=== PATIENT | female | born 1975 | race African-American/Black ===

== ENCOUNTER 2018-05-07 10:54 | Emergency (ER) | payer MEDICAID, OTHER ==
[~2018-05-07] VITALS: Ht 180.3 cm; Wt 97.1 kg
[2018-05-07 11:03] VITALS: BP 131/62
[2018-05-07] MEDS ORDERED: LIDOCAINE 1% HCL (LOCAL ANESTH.) INJ 20ML MDV IJ ONE (13:30)
== END 2018-05-07 15:17 | disposition home or self-care (01) ==
LOC: ER 10:57
DX: K64.5 Perianal venous thrombosis (principal); Z88.0 Allergy status to penicillin; Z90.710 Acquired absence of both cervix and uterus
CPT/HCPCS: 46083

== ENCOUNTER 2019-12-31 11:46 | Inpatient (IN) | payer MEDICAID ==
[~2019-12-31] VITALS: Ht 180.3 cm; Wt 111.1 kg
[2019-12-31] MEDS ORDERED: SODIUM CHLORIDE 0.9% 1,000 ML IVB ONE (12:45)
[2019-12-31] MEDS ORDERED: MORPHINE SULFATE 4 MG/ML SYR/VIAL IV ONE (12:45)
[2019-12-31] MEDS ORDERED: KETOROLAC TROMETH 30 MG/ML 1ML VIAL IV ONE (12:45)
[2019-12-31] MEDS ORDERED: ONDANSETRON HCL 4 MG/2 ML VIAL IV ONE (12:45)
[2019-12-31 13:13] LABS: Urine Bacteria NONE SEEN /hpf (None Seen); Urine Blood 2+ /uL (Negative); Urine Mucus FEW (None Seen); Urine Specific Gravity 1.018 (1.001-1.035); Urine WBC 1 /hpf (0 - 5)
[2019-12-31 13:17] LABS: Basophils # (auto) 0 10 ^3/uL (0-0.2); Basophils % (auto) 0.8 % (0.0-2.0); Eosinophils # (auto) 0.1 10 ^3/uL (0-0.8); Eosinophils % (auto) 3.3 % (0.0-7.0); Hematocrit 37.6 % (36.0-46.0); Hemoglobin 12.8 g/dL (12.2-16.2); Lymphocytes # (auto) 1.6 10 ^3/uL (0.4-5.4); Lymphocytes % (auto) 41.2 % (10.0-50.0); Mean Corpuscular Hemoglobin 29.1 pg (28.0-32.0); Mean Corpuscular Hgb Conc. 33.9 g/dL (32.0-36.0); Monocytes # (auto) 0.4 10 ^3/uL (0-1.3); Monocytes % (auto) 9.2 % (0.0-12.0); Neutrophils # (auto) 1.8 10 ^3/uL (1.6-8.6); Neutrophils % (auto) 45.5 % (37.0-80.0); Platelet Count (auto) 188 10^3/uL (140-450); Red Blood Cells 4.38 10^6/uL (4.0-5.20); Red Cell Distribution Width 13.1 % (11.8-14.3)
[2019-12-31 13:39] LABS: Albumin 3.6 g/dL (3.4-5.0); Calcium 8.9 mg/dL (8.5-10.1); Potassium 4.3 mmol/L (3.5-5.1)
[2019-12-31 13:42] LABS: BUN/Creatinine Ratio 15.2; Bilirubin, Total 0.5 mg/dL (0.2-1.0)
[2019-12-31] MEDS ORDERED: ONDANSETRON HCL 4 MG/2 ML VIAL IV PRN (16:15)
[2019-12-31] MEDS ORDERED: ACETAMINOPHEN 325 MG TAB PO PRN (16:15)
[2019-12-31] MEDS ORDERED: HYDROcodone-ACET 5/325MG TAB PO PRN (16:15)
[2019-12-31] MEDS: SODIUM CHLORIDE 0.9% 1,000 ML IV SCH ×2 (16:39→20:35)
[2019-12-31] MEDS: TAMSULOSIN HYDROCHLORIDE 0.4 MG CAP PO SCH (18:36)
[2019-12-31] MEDS: MORPHINE SULF INJ 2 MG/ML SYRINGE 1ML IV PRN (19:56)
[2019-12-31 20:30] VITALS: BP 116/93
[2019-12-31 22:00] VITALS: BP 116/93
[2020-01-01] MEDS: diphenhdrAMINE HCL 50 MG/1 ML VL IV PRN ×4 (00:36→22:00)
[2020-01-01] MEDS: SODIUM CHLORIDE 0.9% 1,000 ML IV SCH ×4 (04:46→21:35)
[2020-01-01 05:00] VITALS: BP 111/67
[2020-01-01] MEDS: MORPHINE SULF INJ 2 MG/ML SYRINGE 1ML IV PRN ×4 (05:09→19:00)
[2020-01-01 06:21] LABS: Basophils # (auto) 0 10 ^3/uL (0-0.2); Basophils % (auto) 0.6 % (0.0-2.0); Eosinophils # (auto) 0.1 10 ^3/uL (0-0.8); Eosinophils % (auto) 3.2 % (0.0-7.0); Hematocrit 33.1 % (36.0-46.0); Hemoglobin 11.5 g/dL (12.2-16.2); Lymphocytes # (auto) 1.2 10 ^3/uL (0.4-5.4); Lymphocytes % (auto) 32.1 % (10.0-50.0); Mean Corpuscular Hemoglobin 29.8 pg (28.0-32.0); Mean Corpuscular Hgb Conc. 34.7 g/dL (32.0-36.0); Mean Corpuscular Volume 85.9 fL (80.0-100.0); Monocytes # (auto) 0.3 10 ^3/uL (0-1.3); Monocytes % (auto) 9.3 % (0.0-12.0); Neutrophils % (auto) 54.8 % (37.0-80.0); Nucleated Red Blood Cells % 0.2 %; Platelet Count (auto) 158 10^3/uL (140-450); Red Blood Cells 3.85 10^6/uL (4.0-5.20); Red Cell Distribution Width 13.4 % (11.8-14.3); White Blood Cell 3.7 10^3/uL (4.4-10.8)
[2020-01-01 06:33] LABS: Calcium 8.2 mg/dL (8.5-10.1); Magnesium 2.1 mg/dL (1.6-2.6); Potassium 3.8 mmol/L (3.5-5.1)
[2020-01-01 06:36] LABS: BUN/Creatinine Ratio 15.8
[2020-01-01 09:00] VITALS: BP 108/63
[2020-01-01] MEDS ORDERED: cefTRIAXone 1GM/50ML D5W 50 ML IV SCH (09:00)
[2020-01-01] MEDS: cefTRIAXone 1GM/50ML D5W 50 ML IV SCH (09:00)
[2020-01-01 13:00] VITALS: BP 121/75
[2020-01-01 16:16] VITALS: BP 147/90
[2020-01-01] MEDS: TAMSULOSIN HYDROCHLORIDE 0.4 MG CAP PO SCH (18:52)
[2020-01-01 22:00] VITALS: BP 112/68
[2020-01-02] MEDS: SODIUM CHLORIDE 0.9% 1,000 ML IV SCH ×3 (01:04→18:42)
[2020-01-02] MEDS: MORPHINE SULF INJ 2 MG/ML SYRINGE 1ML IV PRN ×3 (01:04→10:44)
[2020-01-02 05:00] VITALS: BP 118/70
[2020-01-02] MEDS: cefTRIAXone 1GM/50ML D5W 50 ML IV SCH (08:16)
[2020-01-02] MEDS: diphenhdrAMINE HCL 50 MG/1 ML VL IV PRN ×3 (08:16→19:32)
[2020-01-02 09:00] VITALS: BP 130/85
[2020-01-02] MEDS ORDERED: MANNITOL FTV 25% 12.5 GM/50 ML 50 ML IV ONE (09:15)
[2020-01-02] MEDS ORDERED: SODIUM CHLORIDE 0.9% 1,000 ML IV ONE (09:15)
[2020-01-02 13:00] VITALS: BP 126/76
[2020-01-02 17:00] VITALS: BP_SYST 127; BP_SYST 144; BP_DIAS 65; BP_DIAS 78
[2020-01-02] MEDS: HYDROmorphone HCL 2 MG/ML VL IV PRN ×2 (18:42→22:34)
[2020-01-02] MEDS: TAMSULOSIN HYDROCHLORIDE 0.4 MG CAP PO SCH (18:42)
[2020-01-02 22:00] VITALS: BP 119/72
[2020-01-03] MEDS: diphenhdrAMINE HCL 50 MG/1 ML VL IV PRN ×3 (01:16→20:19)
[2020-01-03] MEDS: SODIUM CHLORIDE 0.9% 1,000 ML IV SCH ×3 (04:15→18:00)
[2020-01-03 05:00] VITALS: BP 137/79
[2020-01-03 06:59] LABS: Calcium 8.5 mg/dL (8.5-10.1)
[2020-01-03 07:02] LABS: BUN/Creatinine Ratio 8.7; Basophils # (auto) 0 10 ^3/uL (0-0.2); Basophils % (auto) 0.6 % (0.0-2.0); Eosinophils # (auto) 0.1 10 ^3/uL (0-0.8); Eosinophils % (auto) 1.3 % (0.0-7.0); Hematocrit 35.9 % (36.0-46.0); Hemoglobin 12.4 g/dL (12.2-16.2); Lymphocytes # (auto) 1.2 10 ^3/uL (0.4-5.4); Mean Corpuscular Hemoglobin 29.5 pg (28.0-32.0); Mean Corpuscular Hgb Conc. 34.7 g/dL (32.0-36.0); Mean Corpuscular Volume 85.2 fL (80.0-100.0); Monocytes # (auto) 0.3 10 ^3/uL (0-1.3); Monocytes % (auto) 6.8 % (0.0-12.0); Neutrophils % (auto) 65.3 % (37.0-80.0); Nucleated Red Blood Cells % 0.1 %; Platelet Count (auto) 190 10^3/uL (140-450); Red Blood Cells 4.22 10^6/uL (4.0-5.20); Red Cell Distribution Width 13.1 % (11.8-14.3); White Blood Cell 4.5 10^3/uL (4.4-10.8)
[2020-01-03 07:03] LABS: INR 0.97 (0.9-1.15); Partial Thromboplastin Time 24.3 sec (23.0-31.2)
[2020-01-03] MEDS ORDERED: IOHEXOL 300 MG/ML 100ML BOTTLE IJ ONE (07:41)
[2020-01-03] MEDS ORDERED: CIPROFLOXACIN 400MG/200ML 200 ML IV ONE (08:08)
[2020-01-03] MEDS ORDERED: SUCCINYLCHOLINE CHLORIDE 20 MG/ML 10ML VIAL IV ONE (08:09)
[2020-01-03] MEDS ORDERED: LIDOCAINE 1% (LOCAL ANESTH.) PF 5ml SDV ONE (08:09)
[2020-01-03] MEDS ORDERED: MIDAZOLAM HCL 1MG/1ML-2 ML VIAL ONE (08:11)
[2020-01-03] MEDS ORDERED: METOCLOPRAMIDE HCL 5MG/ml INJ 2ml VIAL ONE (08:13)
[2020-01-03] MEDS ORDERED: ONDANSETRON HCL 4 MG/2 ML VIAL IV PRN (08:15)
[2020-01-03] MEDS ORDERED: PROPOFOL 10 MG/ML 20 ML IV ONE (08:15)
[2020-01-03] MEDS ORDERED: ROCURONIUM 10MG/ML 10ML VIAL IV ONE (08:15)
[2020-01-03] MEDS ORDERED: NALOXONE HCL 0.4 MG/ML VIAL IV PRN (08:15)
[2020-01-03] MEDS ORDERED: HYDROmorphone HCL 2 MG/ML VL IV PRN ×2 (08:15)
[2020-01-03] MEDS ORDERED: fentaNYL CITRATE 100 MCG/2 ML VL ONE (08:23)
[2020-01-03] MEDS ORDERED: NEOSTIGMINE 1 MG/ML INJ (10mg/10ML VIAL) ONE (08:59)
[2020-01-03] MEDS ORDERED: GLYCOPYRROLATE 0.2 MG/ML 1ML VIAL ONE (08:59)
[2020-01-03] MEDS: cefTRIAXone 1GM/50ML D5W 50 ML IV SCH (09:00)
[2020-01-03] MEDS ORDERED: KETOROLAC TROMETH 30 MG/ML 1ML VIAL ONE (09:03)
[2020-01-03 13:00] VITALS: BP 107/74
[2020-01-03] MEDS: HYDROmorphone HCL 2 MG/ML VL IV PRN ×3 (13:56→22:20)
[2020-01-03 17:00] VITALS: BP 112/67
[2020-01-03] MEDS: TAMSULOSIN HYDROCHLORIDE 0.4 MG CAP PO SCH (18:21)
[2020-01-03 22:00] VITALS: BP 106/72
[2020-01-04] MEDS: SODIUM CHLORIDE 0.9% 1,000 ML IV SCH ×3 (00:15→17:49)
[2020-01-04] MEDS: diphenhdrAMINE HCL 50 MG/1 ML VL IV PRN ×3 (02:24→17:48)
[2020-01-04] MEDS: HYDROmorphone HCL 2 MG/ML VL IV PRN ×4 (03:43→19:05)
[2020-01-04 05:00] VITALS: BP 110/60
[2020-01-04 08:39] VITALS: BP 120/70
[2020-01-04] MEDS: cefTRIAXone 1GM/50ML D5W 50 ML IV SCH (08:50)
[2020-01-04 13:00] VITALS: BP 120/74
[2020-01-04 16:42] VITALS: BP 145/95
[2020-01-04] MEDS: TAMSULOSIN HYDROCHLORIDE 0.4 MG CAP PO SCH (17:48)
[2020-01-04 22:00] VITALS: BP 135/81
[2020-01-05] MEDS: HYDROmorphone HCL 2 MG/ML VL IV PRN ×2 (02:02→09:32)
[2020-01-05] MEDS: diphenhdrAMINE HCL 50 MG/1 ML VL IV PRN (04:01)
[2020-01-05 05:00] VITALS: BP 125/81
[2020-01-05] MEDS: SODIUM CHLORIDE 0.9% 1,000 ML IV SCH ×2 (07:28→07:30)
[2020-01-05 09:00] VITALS: BP 135/76
[2020-01-05] MEDS: cefTRIAXone 1GM/50ML D5W 50 ML IV SCH (09:32)
[2020-01-05 11:37] VITALS: BP 135/76
== END 2020-01-05 12:45 | disposition home or self-care (01) | DRG 446 ==
LOC: ER 11:46 → OVERFLOW 11:47 → WEST WING 19:01
PROVIDERS: ADMIT Internal Medicine; ATTEND Internal Medicine
PROC: 0TC68ZZ Extirpation of Matter from Right Ureter, Via Natural or Artificial Opening Endoscopic (ICD-10-PCS; principal; 2020-01-03 08:08)
DX: N13.9 Obstructive and reflux uropathy, unspecified (principal); E66.01 Morbid (severe) obesity due to excess calories; N20.1 Calculus of ureter; D64.9 Anemia, unspecified; Z20.828 Contact with and (suspected) exposure to other viral communicable diseases; Z80.9 Family history of malignant neoplasm, unspecified; Z82.49 Family history of ischemic heart disease and other diseases of the circulatory system; Z83.3 Family history of diabetes mellitus; Z87.442 Personal history of urinary calculi; Z90.49 Acquired absence of other specified parts of digestive tract; Z90.710 Acquired absence of both cervix and uterus; Z88.0 Allergy status to penicillin; Z68.34 Body mass index [BMI] 34.0-34.9, adult; Z71.3 Dietary counseling and surveillance
CPT/HCPCS: 36415; 74018; 74176; 76000; 80048; 80053; 81001; 82360; 83690; 83735; 84702; 85025; 85610; 85730; 96361; 96374; 96375; G0378; J0330; J0696; J1885; J2250; J2405; J2704

== ENCOUNTER 2020-05-05 10:57 | Emergency (ER) | payer MEDICAID ==
[~2020-05-05] VITALS: Ht 180.3 cm; Wt 106.6 kg
[2020-05-05 11:02] VITALS: BP 126/89
[2020-05-05] MEDS ORDERED: TETRACAINE HCL 0.5% OPTH(EYE) SOLN 4ML LEFTEYE ONE (11:45)
[2020-05-05] MEDS ORDERED: FLUORESCEIN SOD 1 MG TEST STRIP LEFTEYE ONE (11:45)
[2020-05-05] MEDS ORDERED: traMADol HCL 50 MG TAB PO ONE (12:30)
== END 2020-05-05 13:54 | disposition home or self-care (01) ==
LOC: ER 10:57
DX: H10.32 Unspecified acute conjunctivitis, left eye (principal); H00.036 Abscess of eyelid left eye, unspecified eyelid
CPT/HCPCS: 65222; 70480

== ENCOUNTER 2020-07-10 17:39 | Emergency (ER) | payer MEDICAID ==
[~2020-07-10] VITALS: Ht 180.3 cm; Wt 104.3 kg
[2020-07-10 18:27] LABS: Basophils # (auto) 0.1 10 ^3/uL (0-0.2); Basophils % (auto) 1.3 % (0.0-2.0); Eosinophils # (auto) 0.1 10 ^3/uL (0-0.8); Eosinophils % (auto) 0.9 % (0.0-7.0); Hematocrit 41.6 % (36.0-46.0); Hemoglobin 14.1 g/dL (12.2-16.2); Lymphocytes % (auto) 31.8 % (10.0-50.0); Mean Corpuscular Hemoglobin 29.3 pg (28.0-32.0); Mean Corpuscular Volume 86.3 fL (80.0-100.0); Monocytes # (auto) 0.4 10 ^3/uL (0-1.3); Monocytes % (auto) 6.5 % (0.0-12.0); Neutrophils # (auto) 3.7 10 ^3/uL (1.6-8.6); Neutrophils % (auto) 59.5 % (37.0-80.0); Nucleated Red Blood Cells % 0.2 %; Platelet Count (auto) 233 10^3/uL (140-450); Red Blood Cells 4.82 10^6/uL (4.0-5.20); Red Cell Distribution Width 13.4 % (11.8-14.3); White Blood Cell 6.2 10^3/uL (4.4-10.8)
[2020-07-10 18:43] LABS: INR 0.92 (0.9-1.15); Partial Thromboplastin Time 23.2 sec (23.0-31.2)
[2020-07-10 18:45] LABS: Albumin 3.6 g/dL (3.4-5.0); Calcium 8.5 mg/dL (8.5-10.1)
[2020-07-10 18:49] LABS: BUN/Creatinine Ratio 16.5; Bilirubin, Total 0.5 mg/dL (0.2-1.0); Total Protein 7.6 g/dL (6.4-8.2)
[2020-07-10 20:30] LABS: Urine Bacteria NONE SEEN /hpf (None Seen); Urine Blood Negative /uL (Negative); Urine Mucus FEW (None Seen); Urine Specific Gravity 1.034 (1.001-1.035); Urine WBC 28 /hpf (0 - 5)
[2020-07-10] MEDS ORDERED: ONDANSETRON HCL 4 MG/2 ML VIAL IV ONE (21:15)
[2020-07-10] MEDS ORDERED: MORPHINE SULFATE 4 MG/ML SYR/VIAL IV ONE (21:15)
[2020-07-10 23:04] VITALS: BP 122/79
== END 2020-07-10 23:44 | disposition home or self-care (01) ==
LOC: ER 17:39
DX: N20.0 Calculus of kidney (principal); G89.29 Other chronic pain; M54.9 Dorsalgia, unspecified; Z32.02 Encounter for pregnancy test, result negative; Z90.49 Acquired absence of other specified parts of digestive tract; Z90.710 Acquired absence of both cervix and uterus; Z88.0 Allergy status to penicillin
CPT/HCPCS: 36415; 74176; 80053; 81001; 81025; 83605; 83690; 85025; 85610; 85730; 96374; 96375; 99284; J2270; J2405

== ENCOUNTER 2020-12-09 10:32 | Emergency (ER) | payer MEDICAID ==
[~2020-12-09] VITALS: Ht 180.3 cm; Wt 103.4 kg
[2020-12-09 13:24] VITALS: BP 116/80
[2020-12-09] MEDS ORDERED: ACETAMINOPHEN 325 MG TAB PO ONE (14:15)
== END 2020-12-09 14:44 | disposition home or self-care (01) ==
LOC: ER 10:32
DX: S63.502A Unspecified sprain of left wrist, initial encounter (principal); E11.9 Type 2 diabetes mellitus without complications; Z90.49 Acquired absence of other specified parts of digestive tract; Z90.710 Acquired absence of both cervix and uterus; Z88.0 Allergy status to penicillin; X58.XXXA Exposure to other specified factors, initial encounter; Y93.89 Activity, other specified; Y92.89 Other specified places as the place of occurrence of the external cause; Y99.8 Other external cause status
CPT/HCPCS: 73110; 82962

== ENCOUNTER 2021-12-14 17:54 | Emergency (ER) | payer MEDICAID ==
[~2021-12-14] VITALS: Ht 180.3 cm; Wt 96.9 kg
[2021-12-14 17:54] VITALS: BP 107/85
[2021-12-14 19:57] LABS: Urine Bacteria NONE SEEN /hpf (None Seen); Urine Blood 3+ /uL (Negative); Urine Mucus FEW (None Seen); Urine Specific Gravity 1.025 (1.001-1.035); Urine WBC 84 /hpf (0 - 5)
[2021-12-14 20:10] LABS: Basophils # (auto) 0 10 ^3/uL (0-0.2); Basophils % (auto) 0.8 % (0.0-2.0); Eosinophils # (auto) 0.1 10 ^3/uL (0-0.8); Eosinophils % (auto) 2.7 % (0.0-7.0); Hematocrit 40.6 % (36.0-46.0); Hemoglobin 13.5 g/dL (12.2-16.2); Lymphocytes % (auto) 39.7 % (10.0-50.0); Mean Corpuscular Hemoglobin 28.4 pg (28.0-32.0); Mean Corpuscular Hgb Conc. 33.3 g/dL (32.0-36.0); Mean Corpuscular Volume 85.3 fL (80.0-100.0); Monocytes # (auto) 0.4 10 ^3/uL (0-1.3); Monocytes % (auto) 8.5 % (0.0-12.0); Neutrophils # (auto) 2.4 10 ^3/uL (1.6-8.6); Neutrophils % (auto) 48.3 % (37.0-80.0); Nucleated Red Blood Cells % 0.1 %; Red Blood Cells 4.76 10^6/uL (4.0-5.20); Red Cell Distribution Width 13.7 % (11.8-14.3); White Blood Cell 5.1 10^3/uL (4.4-10.8)
[2021-12-14 20:46] LABS: Albumin 3.9 g/dL (3.4-5.0); Calcium 9.3 mg/dL (8.5-10.1); Potassium 3.8 mmol/L (3.5-5.1)
[2021-12-14 20:51] LABS: Bilirubin, Total 0.7 mg/dL (0.2-1.0); Total Protein 7.6 g/dL (6.4-8.2)
[2021-12-15] MEDS ORDERED: SODIUM CHLORIDE 0.9% 1,000 ML IV ONE (04:00)
[2021-12-15] MEDS ORDERED: HYDROmorphone HCL 2 MG/ML VL/or syr IV ONE (04:00)
[2021-12-15] MEDS ORDERED: cefTRIAXone 1GM/50ML D5W 50 ML IV ONE (04:00)
[2021-12-15] MEDS ORDERED: ONDANSETRON HCL 4 MG/2 ML VIAL IV ONE (04:00)
== END 2021-12-15 05:22 | disposition left against medical advice (07) ==
LOC: ER 17:54
DX: T83.192A Other mechanical complication of indwelling ureteral stent, initial encounter (principal); N39.0 Urinary tract infection, site not specified; N13.30 Unspecified hydronephrosis; E11.9 Type 2 diabetes mellitus without complications; Z90.49 Acquired absence of other specified parts of digestive tract; Z90.710 Acquired absence of both cervix and uterus; Z88.0 Allergy status to penicillin
CPT/HCPCS: 36415; 74176; 80053; 81001; 85025

== ENCOUNTER 2022-11-15 10:09 | Inpatient (IN) | payer MEDICAID ==
[~2022-11-15] VITALS: Ht 180.3 cm; Wt 112.5 kg
[2022-11-15 11:08] LABS: Basophils # (auto) 0 10 ^3/uL (0-0.2); Basophils % (auto) 0.8 % (0.0-2.0); Eosinophils # (auto) 0.1 10 ^3/uL (0-0.8); Eosinophils % (auto) 2.1 % (0.0-7.0); Hemoglobin 13.2 g/dL (12.2-16.2); Lymphocytes # (auto) 1.6 10 ^3/uL (0.4-5.4); Lymphocytes % (auto) 39.3 % (10.0-50.0); Mean Corpuscular Hemoglobin 28.7 pg (28.0-32.0); Mean Corpuscular Hgb Conc. 33.8 g/dL (32.0-36.0); Mean Corpuscular Volume 84.8 fL (80.0-100.0); Monocytes # (auto) 0.3 10 ^3/uL (0-1.3); Monocytes % (auto) 7.7 % (0.0-12.0); Neutrophils % (auto) 50.1 % (37.0-80.0); Nucleated Red Blood Cells % 0.1 %; Red Cell Distribution Width 14.1 % (11.8-14.3); White Blood Cell 4.1 10^3/uL (4.4-10.8)
[2022-11-15 11:37] LABS: Alanine Aminotransferase 24 U/L (7-40); Albumin 4.3 g/dL (3.2-4.8); Alkaline Phosphatase 118 U/L (46-116); Anion Gap 5.5 (5-15); Aspartate Aminotransferase 15 U/L (13-40); BUN/Creatinine Ratio 15.2 (10.0-20.0); Bilirubin, Total 0.8 mg/dL (0.2-1.0); Blood Urea Nitrogen 14 mg/dL (9-23); Calcium 9.3 mg/dL (8.5-10.1); Carbon Dioxide 27.5 mmol/L (20-30); Chloride 107 mmol/L (98-107); Glucose 216 mg/dL (74-106); Potassium 4.2 mmol/L (3.5-5.1); Sodium 140 mmol/L (136-145); Total Protein 6.7 g/dL (5.7-8.2)
[2022-11-15] MEDS ORDERED: ASPirin 325 MG TAB PO ONE (11:45)
[2022-11-15 11:54] LABS: Urine Bacteria FEW /hpf (None Seen); Urine Blood TRACE /uL (Negative); Urine Clarity Clear (Clear); Urine Color Yellow (Yellow); Urine Mucus MODERATE (None Seen); Urine Protein, UAD TRACE (Negative); Urine Specific Gravity 1.025 (1.001-1.035); Urine Urobilinogen Normal (Negative); Urine WBC 2 /hpf (0 - 5); Urine pH 5.5 (5.0-8.0)
[2022-11-15] MEDS ORDERED: DexAMETHasone SOD PHOS 10MG/1ML VIAL INJ IV ONE (14:30)
[2022-11-15] MEDS ORDERED: KETOROLAC TROMETH 30 MG/ML 1ML VIAL IM ONE (15:45)
[2022-11-15] MEDS ORDERED: HYDROcodone-ACET 5/325MG TAB PO ONE (15:45)
[2022-11-15] MEDS ORDERED: ONDANSETRON ODT 4 MG TAB PO ONE (15:45)
[2022-11-15] MEDS ORDERED: ACETAMINOPHEN 325 MG TAB PO PRN (18:45)
[2022-11-15] MEDS ORDERED: MORPHINE SULFATE INJ 2 MG/ml SYRG IV PRN (18:45)
[2022-11-15] MEDS ORDERED: ONDANSETRON HCL 4 MG/2 ML VIAL IV PRN (18:45)
[2022-11-15] MEDS ORDERED: FAMO20TA10 PO (18:52)
[2022-11-15] MEDS ORDERED: DEXTROSE (50%) 50ML SYRG IV PRN (19:00)
[2022-11-16] VITALS (7 sets, daily range): BP systolic 115–135; BP diastolic 68–81; PULSE 77–91; RESP 14–22; TEMP 97.6–98; O2SAT 95–100
[2022-11-16] MEDS: HYDROcodone-ACET 10/325MG TAB PO PRN ×3 (02:08→18:15)
[2022-11-16] MEDS: FAMOTIDINE 20 MG TAB PO SCH ×3 (02:08→22:54)
[2022-11-16] MEDS: ATORVASTATIN 20 MG TAB PO SCH ×2 (02:08→22:54)
[2022-11-16] MEDS: InsuLIN REG 1unit/0.01ml Soln (100units/ml) SC SCH ×5 (02:08→22:50)
[2022-11-16] MEDS: ACCU-CHEK COMFORT CURVE STRIP VI SCH ×5 (02:09→22:55)
[2022-11-16] MEDS ORDERED: IBUP-1455 PO (02:45)
[2022-11-16] MEDS ORDERED: SEMA2INJ3 (02:45)
[2022-11-16] MEDS ORDERED: METH-1182 PO (02:45)
[2022-11-16] MEDS ORDERED: HYDR1SOL36 (02:45)
[2022-11-16] MEDS: NITROGLYCERIN 0.4 MG SL TAB SL PRN ×3 (03:07→03:21)
[2022-11-16 06:18] LABS: Basophils # (auto) 0 10 ^3/uL (0-0.2); Basophils % (auto) 0.1 % (0.0-2.0); Eosinophils # (auto) 0 10 ^3/uL (0-0.8); Hematocrit 37.2 % (36.0-46.0); Hemoglobin 12.7 g/dL (12.2-16.2); Lymphocytes # (auto) 0.6 10 ^3/uL (0.4-5.4); Lymphocytes % (auto) 10.5 % (10.0-50.0); Mean Corpuscular Hemoglobin 28.9 pg (28.0-32.0); Mean Corpuscular Hgb Conc. 34.2 g/dL (32.0-36.0); Mean Corpuscular Volume 84.6 fL (80.0-100.0); Monocytes # (auto) 0.1 10 ^3/uL (0-1.3); Neutrophils # (auto) 4.7 10 ^3/uL (1.6-8.6); Neutrophils % (auto) 88.4 % (37.0-80.0); Red Cell Distribution Width 13.7 % (11.8-14.3); White Blood Cell 5.4 10^3/uL (4.4-10.8)
[2022-11-16 06:33] LABS: Alanine Aminotransferase 19 U/L (7-40); Albumin 4.2 g/dL (3.2-4.8); Alkaline Phosphatase 111 U/L (46-116); Anion Gap 7.1 (5-15); Aspartate Aminotransferase 10 U/L (13-40); BUN/Creatinine Ratio 11.5 (10.0-20.0); Bilirubin, Total 0.8 mg/dL (0.2-1.0); Blood Urea Nitrogen 10 mg/dL (9-23); Calcium 9.2 mg/dL (8.5-10.1); Carbon Dioxide 25.9 mmol/L (20-30); Chloride 103 mmol/L (98-107); Cholesterol 238 mg/dL (< 200); Glucose 285 mg/dL (74-106); HDL Cholesterol 49 mg/dL (40-59); LDL Cholesterol 189 mg/dL (< 100); Sodium 136 mmol/L (136-145); Total Protein 6.8 g/dL (5.7-8.2); Triglycerides 36 mg/dL (< 150)
[2022-11-16 08:25] LABS: Amphetamine Screen, Urine Neg (NEGATIVE); Benzodiazephine Screen, Urine Neg (NEGATIVE)
[2022-11-16 08:26] LABS: Barbiturate Scree,Urine Neg (NEGATIVE)
[2022-11-16 08:27] LABS: Cannabinoid Screen, Urine Neg (NEGATIVE); Cocaine Screen, Urine Neg (NEGATIVE); Opiate Scree,Urine Neg (NEGATIVE); Phencyclidine Screen, Urine Neg (NEGATIVE)
[2022-11-16] MEDS: ASPirin-EC 81 mg tab PO SCH (09:30)
[2022-11-16] MEDS: traMADol HCL 50 MG TAB PO PRN (22:54)
[2022-11-17] MEDS: HYDROcodone-ACET 10/325MG TAB PO PRN (04:49)
[2022-11-17 05:39] VITALS: BP 114/68; PULSE 75; RESP 15; TEMP 97.8; O2SAT 100
[2022-11-17] MEDS: InsuLIN REG 1unit/0.01ml Soln (100units/ml) SC SCH ×3 (06:34→18:30)
[2022-11-17] MEDS: ACCU-CHEK COMFORT CURVE STRIP VI SCH ×3 (06:37→18:29)
[2022-11-17] MEDS: traMADol HCL 50 MG TAB PO PRN (06:43)
[2022-11-17 09:00] VITALS: BP 142/84; PULSE 76; RESP 17; TEMP 97.9; O2SAT 98
[2022-11-17] MEDS: FAMOTIDINE 20 MG TAB PO SCH (10:24)
[2022-11-17] MEDS: ASPirin-EC 81 mg tab PO SCH (10:24)
[2022-11-17] MEDS ORDERED: HYDR-4902 PO (12:58)
[2022-11-17 13:00] VITALS: BP 111/53; PULSE 78; RESP 17; TEMP 98.1; O2SAT 96
[2022-11-17 15:33] VITALS: BP 112/70
[2022-11-17 17:00] VITALS: BP 133/77; PULSE 80; RESP 17; TEMP 97.9; O2SAT 99
[2022-11-18 12:22] LABS: Hepatitis C Antibody Negative (Negative)
[2022-11-18 13:44] LABS: Hepatitis B Surface Antigen Negative (Negative)
== END 2022-11-17 17:56 | disposition home or self-care (01) | DRG 203 ==
LOC: ER 10:09 → TELE 18:47 → TELE-WESTW 11-16 01:23
PROVIDERS: ADMIT Nurse Practitioner Family; ATTEND Family Medicine
DX: R07.89 Other chest pain (principal); E11.9 Type 2 diabetes mellitus without complications; F41.9 Anxiety disorder, unspecified; E66.01 Morbid (severe) obesity due to excess calories; G89.29 Other chronic pain; M19.90 Unspecified osteoarthritis, unspecified site; M54.50 Low back pain, unspecified; E78.5 Hyperlipidemia, unspecified; Z68.34 Body mass index [BMI] 34.0-34.9, adult; Z90.710 Acquired absence of both cervix and uterus; Z88.0 Allergy status to penicillin; Z87.442 Personal history of urinary calculi; Z83.3 Family history of diabetes mellitus; Z82.49 Family history of ischemic heart disease and other diseases of the circulatory system; Z80.9 Family history of malignant neoplasm, unspecified; Z79.84 Long term (current) use of oral hypoglycemic drugs; Z90.49 Acquired absence of other specified parts of digestive tract
CPT/HCPCS: 36415; 72148; 80053; 80061; 80307; 81001; 82962; 83036; 83880; 84443; 84484; 85025; 86803; 87340; 93005; 93306; 96372; 96374; G0378; J1100; J1815; J1885; Q0162